=== PATIENT | female | born 1990 | race Caucasian/White ===

== ENCOUNTER 2018-08-24 12:27 | Inpatient (IN) | payer MEDICAID ==
[2018-08-24] MEDS ORDERED: IBUPROFEN 600 MG TAB PO PRN (12:46)
[2018-08-24] MEDS ORDERED: TERBUTALINE SULFATE 1 MG/ML VIAL IV PRN (12:46)
[2018-08-24] MEDS ORDERED: AMMONIA AROMATIC 1 EACH AMP IH PRN (12:46)
[2018-08-24] MEDS ORDERED: MISOPROSTOL 200 MCG TAB PO PRN (12:46)
[2018-08-24] MEDS ORDERED: OLIVE OIL 118 ML BTL MISC PRN (12:46)
[2018-08-24] MEDS ORDERED: LIDOCAINE 1% 300 MG/30 ML SDV SC PRN (12:46)
[2018-08-24] MEDS ORDERED: EPSOM SALT 454 GM TP PRN (12:46)
[2018-08-24] MEDS ORDERED: OXYTOCIN/RINGERS LACTATE 1,000 ML IV PRN (12:46)
[2018-08-24] MEDS: LR 1,000 ML IV PRN ×2 (12:52→14:13)
[2018-08-24 13:07] LABS: PLATELET COUNT 208 10^3/uL (150-400)
[2018-08-24] MEDS ORDERED: BUPIVACAINE 0.25% 30 ML SDV ONE (13:13)
[2018-08-24] MEDS ORDERED: PHENYLEPHRINE HCL 100 MCG/ML SYR ONE (13:13)
[2018-08-24] MEDS ORDERED: fentaNYL 100 MCG/2 ML INJ ONE (13:13)
[2018-08-24] MEDS ORDERED: fentaNYL 2MCG/ML/BUP 0.1% RTU 100 ML BAG EP ONE (13:13)
[2018-08-24] MEDS: fentaNYL 2MCG/ML/BUP 0.1% RTU 100 ML EP SCH ×2 (13:30→18:39)
--- NOTE | 2018-08-24 13:58 | PDGENHP ---
History and Physical History and Physical: CARE: [facility] HPI: Patient is a 28 yo G 2 P 0010 at 39.3 weeks ega who presents to L&D with complaints of SROM clear fluid at 0630 and regular contractions that started shortly thereafter. She is doris every 3-4 minutes now, uncomfortable with some light bloody show. Reports good activity. Requesting epidural. EDC: 08/28/2018 which is based on ultrasound at 7 weeks ega, is unsure about LMP date. Her is complicated by: - h/o anxiety/depression (not currently treated) - h/o migraines with aura - Tobacco use- 1-2 cigs/day - h/o street drug use prior to - stopped with ppt - UDS negative - Anemia - taking daily iron - Low lying placenta that resolved by 28 weeks Review of Systems: Constitutional: Denies any fever, chills, or fatigue HEENT: denies any visual changes, difficulty swallowing, hearing loss Cardiovascular: Denies any chest pain, palpitations, leg swelling Respiratory: denies any cough, wheezing, or shortness of breathe GI: Denies any nausea, vomiting, diarrhea, constipation : denies any dysuria, urgency, frequency, vaginal bleeding Musculoskeletal: denies any muscle or bone pain Skin: denies any rashes Neuro: denies any headache, seizures, lightheadedness, dizziness, or loss of consciousness Psychiatric: denies any current depression, anxiety, or SI/HI thoughts HISTORY: Previous OB history: TAB 11/12 Past medical history: h/o anxiety/depression/ADHD (not currently treated), 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 (stopped with ppt), h/o migraines with aura , acid reflux Past surgical history: oral surgery 10 years ago Social hx: single, works as livestock laborer, FOB Venkata is involved and supportive, denies current ETOH, street drug use Medications: PNV, iron Allergies (list reaction): NKDA LABS: Rh: O pos ABS: Neg Rubella: Immune HbsAg: NR HIV: NR VDRL: NR 1hr: 90 GC: Neg Chlamydia: Neg Pap: Normal GBS: neg PHYSICAL EXAM: Constitutional: WN, A&Ox3 Skin: pink, warm, dry HEENT: normocephalic atraumatic, supple Heart: RRR, no murmur Chest: CTA-B Abdomen: Soft, nontender, gravid SVE: 4/90/-1 Extremities: sml pedal edema, negative emilee's sign Neuro: grossly normal Psych: normal affect assessment: Reassuring FHTs, baseline 130s +accels, no decels, moderate variability Contractions: toco q 2-3 min Assessment: 1) 28 yo G 2 P 0 with IUP@ 39.3 weeks ega 2) SROM clear fluid - active labor 3) GBS neg 4) Cat 1 FHR tracing Plan: 1) Admit to L&D 2) Epidural per anesthesia 3) Continuous EFM 4) Anticipate
[2018-08-24] MEDS ORDERED: PHENYLEPHRINE HCL 100 MCG/ML SYR IVP PRN (15:35)
[2018-08-24] MEDS ORDERED: ONDANSETRON 4 MG/2 ML VIAL IVP PRN (15:35)
--- NOTE | 2018-08-24 15:42 | PREANESOB ---
Obstetric Pre-Anesthesia Info - General Info Proposed Procedure: Labor and delivery. : 2 Para: 0 SVEN: 08/28/18 Gestational Age: 39 week(s) and 3 day(s) - Info Status: Full Term Monitors: External FHR Baseline (bpm): 135 FHR Pattern: Reassuring - Labor Status Cervical Dilation per last OB SVE: 4 Indications for Labor Analgesia: Pain Control Labor Epidural: Proposed Anesthesia ROS: [place] teeth. Allergies/Adverse Reactions: Allergy/AdvReac Type Severity Reaction Status Date / Time Milk Containing Products Allergy Other-Enter Verified 08/24/18 14:48 [dairy] Comments soy Allergy Other-Enter Verified 08/24/18 14:48 Comments Home Medications: Medication Instructions Recorded Iron 10 mg PO BID 08/24/18 Vit27&Calcium/Iron/FA 1 each PO DAILY 08/24/18 [ Rx 1 Tablet (RX)] Visit Medications: Generic Name Dose Route Start Last Admin Trade Name Freq PRN Reason Stop Dose Admin Ammonia (Aromatic Spirit) 1 each 08/24/18 12:46 Ammonia Aromatic IH 09/03/18 12:45 ONCE PRN Fainting Diphenhydramine HCl 25 - 50 mg 08/24/18 15:35 Benadryl Injection IVP 02/20/19 15:34 Q6HRS PRN Itching Lactated Ringer's 1,000 mls @ 0 mls/hr 08/24/18 12:46 Lr IV 08/25/18 12:45 PRN PRN SEE PROTOCOL CONDITIONS Protocol Per Protocol Oxytocin/Lactated Ringer's 1,000 mls @ 0 mls/hr 08/24/18 12:46 Pitocin 20 Units/Lr (Premix) IV PRN PRN Post bleeding As Directed Fentanyl/Bupivacaine HCl 100 mls @ 0 mls/hr 08/24/18 16:00 Fentanyl/Bupivacaine/Ns 2 Mcg/Ml 0.1% (Premix EP 09/03/18 15:59 CONT MARNIE Protocol As Directed Lactated Ringer's 500 mls @ 0 mls/hr 08/24/18 16:00 Lr IV 02/20/19 15:59 CONT MARNIE As Directed Ibuprofen 600 mg 08/24/18 12:46 Motrin PO ONCE PRN post , pain Lidocaine HCl 300 mg 08/24/18 12:46 Lidocaine Hcl 1% SC 02/20/19 12:45 ONCE PRN episiotomy Magnesium Sulfate 454 gm 08/24/18 12:46 Epsom Salt TP 02/20/19 12:45 Q1H PRN perineal discomfort Misoprostol 800 - 1,000 mcg 08/24/18 12:46 Cytotec PO 02/20/19 12:45 ONCE PRN Vaginal Atony/Bleeding [place] Oil 118 ml 08/24/18 12:46 Sweet Oil MISC 02/20/19 12:45 ONCE PRN perineal massage Terbutaline Sulfate 0.25 mg 08/24/18 12:46 Brethine IV 02/20/19 12:45 ONCE PRN Tachysystole Discontinued Medications Generic Name Dose Route Start Last Admin Trade Name Freq PRN Reason Stop Dose Admin Bupivacaine HCl Confirm 08/24/18 13:13 Sensorcaine 0.25% Sdv Administered 08/24/18 13:14 Dose 30 ml .ROUTE .STK-MED ONE Fentanyl Confirm 08/24/18 13:13 Sublimaze Administered 08/24/18 13:14 Dose 100 mcg .ROUTE .STK-MED ONE Fentanyl/Bupivacaine HCl Confirm 08/24/18 13:13 Fentanyl/Bupivacaine/Ns 2 Mcg/Ml 0.1% (Premix Administered 08/24/18 13:14 Dose 100 ml EP .STK-MED ONE Phenylephrine HCl Confirm 08/24/18 13:13 Neosynephrine Administered 08/24/18 13:14 Dose 1,000 mcg .ROUTE .STK-MED ONE - Anesthesia History Response to Local Anesthetics: Normal Anesthesia & Operative History: No Prior Problems Family Anesthesia History: Negative - Social History Substance Use/Abuse: Tobacco, Drug Use/Abuse (Reportedly smokes about 2 cigarettes per day and some drug use in the past but not with this .) - Vital Signs Blood Pressure: 96/58 Heart Rate: 100 Height/Weight (Nursing): Height 162.56 cm Weight 79.379 kg - Focused Exam Neck exam: FROM Mallampati Score: Class 1 Mouth exam: normal dental/mouth exam Pulmonary: no respiratory distress Cardiovascular: regular rate and rhythym Labs: 08/24/18 12:52 Patient ABO/Rh O POSITIVE 08/24/18 12:52 - Plan Anesthetic Plan: CSE Consent Signed and on Chart: Yes Patient/Guardian Understands and Agrees to Plan: Yes Urgent/Emergent Case: Anes eval completed preop but documented later for safe timely pt care
--- NOTE | 2018-08-24 15:45 | POSTANESTH ---
Post Anesthetic Evaluation Cardiovascular Status: Normal, Stable, Similar to Pre-Op Cond Respiratory Status: Normal, Stable, Similar to Pre-op Cond. Level of Consciousness/Mental Status: Can Participate in Eval, Alert and Oriented Pain Control: Adequate, Prn Tx Ordered Nausea/Vomiting Control: Adequate, Prn Tx Ordered Complications Possibly Related to Anesthesia: None Noted
[2018-08-24] MEDS ORDERED: LR 500 ML IV SCH (16:00)
[2018-08-24] MEDS ORDERED: LR 500 ML IV PRN (17:16)
[2018-08-24] MEDS ORDERED: OXYTOCIN/RINGERS LACTATE 30 UNIT/500 ML BAG IV ONE (17:18)
[2018-08-24] MEDS ORDERED: OXYTOCIN 10 UNIT/ML VIAL ONE (17:18)
[2018-08-24] MEDS ORDERED: OXYTOCIN/RINGERS LACTATE 500 ML IV SCH (17:30)
--- NOTE | 2018-08-24 18:51 | OBPROG ---
Labor Progress Note Assessment/Plan: Assessment: 28 y/o at 39.3 weeks ega Active labor Epidural in place Contractions somewhat irregular and q 2-5 min, although good labor progress Cat 1 EFM with occasional early decels Chorio - temp 100.6, mom HR 120s, FHT baseline elevation from 130s to 150s. Plan: Start IV Unasyn Pitocin augmentation Anticipate 08/24/18 19:54 Subjective/Intrapartum Course: 08/24/18 19:58 Comfortable, epidural in place. Notified by RN of temp 100.6 with maternal HR 120s. Objective: 08/24/18 12:52 Patient ABO/Rh O POSITIVE 08/24/18 12:52 Temp Pulse Resp BP Pulse Ox 100 96/58 L 08/24/18 15:45 08/24/18 15:45 - SVE Dilation (cm): 8 Effacement (%): 90 Station: 0 Membranes: SROM Amniotic Fluid Color: Clear - Contraction Pattern Assessment Current Contraction Pattern: Irregular Oxytocin Orders Assessment - Pre-Induction/Augmentation Assessment Gestational Age: 39 week(s) and 3 day(s) ICD10 Worksheet Patient Problems: Problems Problem Status Onset Chorioamnionitis Acute Vaginal delivery Acute - ICD10 Problem Qualifiers (1) Chorioamnionitis (2) Vaginal delivery
[2018-08-24] MEDS ORDERED: AMPICILLIN/SULBACTAM 3 GM in NS 100 ML IV SCH (19:00)
[2018-08-24] MEDS ORDERED: SILVER NITRATE APPLICATOR 1 APPL TP ONE (19:33)
[2018-08-24] MEDS: ACETAMINOPHEN 500 MG TAB PO SCH (20:08)
[2018-08-24] MEDS ORDERED: HYDROCORTISONE 0.5% CREAM TP PRN (20:09)
[2018-08-24] MEDS ORDERED: DOCUSATE SODIUM 100 MG CAP PO PRN (20:09)
--- NOTE | 2018-08-24 20:14 | OBDEL ---
Info Type: Vaginal Presentation at Delivery: Vertex L&D Analgesia/Anesthesia Type: Epidural GBS+: No Intrapartum Medications: Generic Name Dose Route Start Last Admin Trade Name Freq PRN Reason Stop Dose Admin Lactated Ringer's 1,000 mls @ 0 mls/hr 08/24/18 12:46 08/24/18 14:13 Lr IV 08/25/18 12:45 1,000 mls PRN PRN Administration SEE PROTOCOL CONDITIONS Protocol Per Protocol Fentanyl/Bupivacaine HCl 100 mls @ 0 mls/hr 08/24/18 16:00 08/24/18 18:39 Fentanyl/Bupivacaine/Ns 2 Mcg/Ml 0.1% (Premix EP 09/03/18 15:59 100 mls CONT MARNIE Administration Protocol As Directed Oxytocin/Lactated Ringer's 500 mls @ 0 mls/hr 08/24/18 17:30 08/24/18 17:22 Pitocin 30 Units/Lr (Premix) IV 02/20/19 17:29 500 mls CONT MARNIE Administration Protocol Per Protocol Ampicillin Sodium/Sulbactam 100 mls @ 200 mls/hr 08/24/18 19:00 08/24/18 18: 57 Sodium 3 gm/ Sodium Chloride IV 08/25/18 06:29 100 mls Q6 MARNIE Administration [place] Oil 118 ml 08/24/18 12:46 08/24/18 18:40 Sweet Oil MISC 02/20/19 12:45 118 ml ONCE PRN Administration perineal massage - Hospital Course Intrapartum: 08/24/18 19:58 Comfortable, epidural in place. Notified by RN of temp 100.6 with maternal HR 120s. Vaginal Delivery - Delivery Provider Delivery Physician/CNM: Agnieszka Ward - Labor and Delivery Onset of Contractions Date: 08/24/18 Onset of Contractions Time: 10:30 Onset of Contractions Type: Augmented Rupture of Membranes Date: 08/24/18 Rupture of Membranes Time: 06:30 Amniotic Fluid Color: Clear Dilation Complete Date: 08/24/18 Dilation Complete Time: 18:40 Placenta Delivery Date: 08/24/18 Placenta Delivery Time: 19:21 Total Hours of Labor: 8 Laceration: 1st Degree (vaginal - no repair) Vaginal Sponge Count Correct: Yes Vaginal Needle Count Correct: Yes Vaginal Sweep Performed: Yes EBL: 300 Delivery Comment: Treated with IV Unasyn for chorioamnionitis just prior to delivery due to temp of 100.6 and elevated maternal pulse - 120s. - Medications Labor Augmentation/Induction Indication: Inadequate Contraction Frequency Data SVEN: 08/28/18 Gestational Age: 39 week(s) and 3 day(s) [place] Delivery Date: 08/24/18 Delivery Time: 19:12 Sex of Infant: Male Score (1 Min): 8 Score (5 Min): 9 ICD10 Worksheet Patient Problems: Problems Problem Status Onset Chorioamnionitis Acute Vaginal delivery Acute - ICD10 Problem Qualifiers (1) Chorioamnionitis (2) Vaginal delivery
[2018-08-25] MEDS ORDERED: AMPICILLIN/SULBACTAM 3 GM in NS 100 ML IV SCH
[2018-08-25] MEDS: ACETAMINOPHEN 500 MG TAB PO SCH ×4 (02:16→20:10)
[2018-08-25] MEDS: traMADol 50 MG TAB PO PRN ×2 (10:48→17:06)
--- NOTE | 2018-08-25 16:10 | OBPP ---
Progress Note Assessment/Plan: Assessment: [id number] s/p Plan: routine PP care support PRN d/c home tomorrow 08/25/18 16:11 Subjective/ Course: 08/25/18 16:10 Pt doing well, visitors present. she denies any heavy bleeding or pain. She states she is a little sore. She is without difficulty- mainly doing side lying for latch. FOB @ BS and supportive. Objective: 08/25/18 06:00 Patient ABO/Rh O POSITIVE 08/24/18 12:52 Temp Pulse Resp BP Pulse Ox 36.2 C 87 17 104/69 96 08/25/18 08:00 08/25/18 08:00 08/25/18 08:00 08/25/18 08:00 08/25/18 08:00 Uterine Position/Fundal Height: Umbilicus -1, Midline Uterine Tone: Firm Physical Exam - Physical Exam General Appearance: WD/WN, alert, no apparent distress Abdomen: non-tender, soft Skin: normal color, warm/dry Neuro/Psych: alert, normal mood/affect, oriented x 3
[2018-08-26] MEDS: ACETAMINOPHEN 500 MG TAB PO SCH ×3 (02:06→14:16)
[2018-08-26] MEDS: traMADol 50 MG TAB PO PRN (08:01)
[2018-08-26 10:10] VITALS: BP 101/67
--- NOTE | 2018-08-26 11:53 | OBPP ---
Progress Note Assessment/Plan: Assessment: Plan: 08/26/18 11:52 PPD #2 Discharge home today, follow up at 2/4/6 weeks or prn. Establishing 08/26/18 11:52 Subjective/ Course: 08/25/18 16:10 Pt doing well, visitors present. she denies any heavy bleeding or pain. She states she is a little sore. She is without difficulty- mainly doing side lying for latch. FOB @ BS and supportive. 08/26/18 11:50 Doing well, other than tired. Baby was up frequently last night feeding, Bleeding minimal. Nipples a little sore. Applying lanolin cream after feeds. Pain well controlled with tylenol and tramadol. Objective: 08/25/18 06:00 Patient ABO/Rh O POSITIVE 08/24/18 12:52 Temp Pulse Resp BP Pulse Ox 36.8 C 74 20 101/67 95 08/26/18 08:00 08/26/18 08:00 08/26/18 08:00 08/26/18 08:00 08/25/18 19:02 VSS. Nipples intact bilaterally, breasts full, soft neg Simone's Uterine Position/Fundal Height: Umbilicus -1 Uterine Tone: Firm
--- NOTE | 2018-08-26 11:53 | OBGCSDC ---
General Delivery Information - General Info : 2 Para: 1 Abortions: 1 Type: Vaginal L&D Analgesia/Anesthesia Type: Epidural Admission Date: 08/24/18 Labs: Patient ABO/Rh O POSITIVE 08/24/18 12:52 Hct 33.6 % (38.0-47.0) L 08/25/18 06:00 - Hospital Course Intrapartum: 08/24/18 19:58 Comfortable, epidural in place. Notified by RN of temp 100.6 with maternal HR 120s. : 08/25/18 16:10 Pt doing well, visitors present. she denies any heavy bleeding or pain. She states she is a little sore. She is without difficulty- mainly doing side lying for latch. FOB @ BS and supportive. 08/26/18 11:50 Doing well, other than tired. Baby was up frequently last night feeding, Bleeding minimal. Nipples a little sore. Applying lanolin cream after feeds. Pain well controlled with tylenol and tramadol. Vaginal - Delivery Provider Delivery Physician/CNM: Agnieszka Ward - Diagnosis Labor: Augmented Amniotic Fluid Color: Clear Laceration: 1st Degree (vaginal - no repair) - Delivery EBL: 300 [place] Data SVEN: 08/28/18 Gestational Age: 39 week(s) and 5 day(s) [place] Delivery Date: 08/24/18 Delivery Time: 19:12 Sex of Infant: Male Weight (gm): 3360 g Score (1 Min): 8 Score (5 Min): 9 Discharge Information - Discharge Information Condition: Good Instruction/Follow Up: Two Weeks, Four Weeks, Six Weeks
== END 2018-08-26 15:00 | disposition home or self-care (01) | DRG 560 ==
LOC: FLD 12:27 → OBSVTOIN 12:27 → FOB 21:27
PROVIDERS: ADMIT Advanced Practice Midwife; ATTEND Advanced Practice Midwife
PROC: 0HQ9XZZ Repair Perineum Skin, External Approach (ICD-10-PCS; principal; 2018-08-24)
PROC: 10E0XZZ Delivery of Products of Conception, External Approach (ICD-10-PCS; principal; 2018-08-24)
DX: O41.1230 Chorioamnionitis, third trimester, not applicable or unspecified (principal); O99.02 Anemia complicating childbirth; D64.9 Anemia, unspecified; Z37.0 Single live birth; Z3A.39 39 weeks gestation of pregnancy; O70.0 First degree perineal laceration during delivery; Z23 Encounter for immunization
CPT/HCPCS: G0008; J0295; J2370; J2590; J3010